=== PATIENT | male | born 1965 | race Hispanic/Latino ===

== ENCOUNTER 2018-11-30 13:55 | Inpatient (IN) | payer BC ==
[2018-11-30] MEDS ORDERED: Iohexol 240 (50 ml) PO ONE (15:05)
--- NOTE | 2018-11-30 15:24 | ED PDOC ---
HPI: Abdomen Time Seen by Provider: 11/30/18 14:48 Chief Complaint (Nursing): Abdominal Pain Chief Complaint (Provider): Abdominal Pain History Per: Patient History/Exam Limitations: no limitations Onset/Duration Of Symptoms: Persistent (x2 weeks) Current Symptoms Are (Timing): Still Present Additional Complaint(s): 53 year old male with no significant medical history, presents to the emergency department with a complaint of constant, right lower abdominal pain ongoing for 2 weeks. Patient reports associated vomiting and congestion, in which, he was seen by a doctor and prescribed Zpack and decongestants. Patient also has a pending sonogram scheduled for next week to evaluate the abdominal pain. He reports taking Advil/Aleve for pain control with minimal improvement - last dose taken at 1000 today. Otherwise, he denies fever, chills, diarrhea, cough, urinary symptoms, testicular pain, injury, trauma, new diet, or similar symptoms in the past. Patient states he "feels constipated", however, reports last BM as 1.5 days ago. Of note, he reports frequent traveling to [place] for business. PCP: none provided Past Medical History Reviewed: Historical Data, Nursing Documentation, Vital Signs Vital Signs: Last Vital Signs Temp 99.7 F H 11/30/18 14:17 Pulse 89 11/30/18 14:17 Resp 19 11/30/18 14:17 BP 143/88 11/30/18 14:17 Pulse Ox 99 11/30/18 14:17 - Medical History PMH: No Chronic Diseases - Surgical History Surgical History: No Surg Hx - Family History Family History: States: Unknown Family Hx - Living Arrangements Living Arrangements: With Family - Allergies Allergies/Adverse Reactions: Allergies Allergy/AdvReac Type Severity Reaction Status Date / Time No Known Allergies Allergy Verified 11/30/18 14:21 Review of Systems ROS Statement: Except As Marked, All Systems Reviewed And Found Negative Constitutional: Negative for: Fever, Chills ENT: Positive for: Nose Congestion Respiratory: Negative for: Cough Gastrointestinal: Positive for: Nausea, Vomiting, Abdominal Pain (right-sided), Constipation. Negative for: Diarrhea Genitourinary Male: Negative for: Dysuria, Incontinence, Hematuria, Scrotal Pain Musculoskeletal: Negative for: Back Pain Neurological: Negative for: Weakness Physical Exam - Reviewed Nursing Documentation Reviewed: Yes Vital Signs Reviewed: Yes - Physical Exam Appears: Positive for: No Acute Distress, Uncomfortable Head Exam: Positive for: ATRAUMATIC, NORMAL INSPECTION, NORMOCEPHALIC Skin: Positive for: Normal Color. Negative for: Rash Eye Exam: Positive for: Normal appearance ENT: Positive for: Normal ENT Inspection. Negative for: Pharyngeal Erythema Neck: Positive for: Normal, Supple Cardiovascular/Chest: Positive for: Regular Rate, Rhythm, Chest Non Tender Respiratory: Positive for: Normal Breath Sounds. Negative for: Respiratory Distress Pulses-Radial (L): 2+ Pulses-Radial (R): 2+ Gastrointestinal/Abdominal: Positive for: Tenderness (right, lower lateral asp ect). Negative for: Distended Back: Positive for: Normal Inspection. Negative for: L CVA Tenderness, R CVA Tenderness, Other (flank pain bilaterally) Extremity: Positive for: Normal ROM (upper/lower). Negative for: Tenderness, Pedal Edema Neurological/Psych: Positive for: Awake, Alert, Normal Tone, Symmetric/Intact Strength (5/5), Oriented. Negative for: Motor/Sensory Deficits - Laboratory Results Result Diagrams: 11/30/18 15:40 11/30/18 15:40 Interpretation Of Abn Labs: trace leuk, 1.6 cr - ECG O2 Sat by Pulse Oximetry: 99 (RA) Pulse Ox Interpretation: Normal - CT Scan/US ct Other Rad Studies (CT/US): Read By Radiologist Other Rad Interpretation: bladder distension, hydro - Progress ED Course And Treament: 1844: Spoke with Dr. Andrews. Made aware of all findings. Wants rocephine and virgen. Will consult. Will admit for further evaluation and treatment. spoke with Dr. Hickey. Will admit. AAOx3. Medical Decision Making Medical Decision Making: Time: 145 Initial Plan: * Labs including blood and urine cultures * EKG * CXR * IV fluids * Omnipaque 240 PO * Toradol IVP * Zofran IV Time: 1553 --CXR FINDINGS: LUNGS: The lungs are well inflated and clear. PLEURA: No pleural effusions or pneumothorax. CARDIOVASCULAR: The heart is normal in size. No aortic atherosclerotic calcifications present. OSSEOUS STRUCTURES: Within normal limits for the patient's age. VISUALIZED UPPER ABDOMEN: Normal. OTHER FINDINGS: None. IMPRESSION: No active pulmonary disease. Scribe Attestation: Documented by Shelbie Price, acting as a scribe for Mike Ghosh MD. Provider Scribe Attestation: All medical record entries made by the Scribe were at my direction and pers onally dictated by me. I have reviewed the chart and agree that the record accurately reflects my personal performance of the history, physical exam, medical decision making, and the department course for this patient. I have also personally directed, reviewed, and agree with the discharge instructions and disposition. Disposition - Clinical Impression Clinical Impression: Abdominal pain, Urinary retention - Patient ED Disposition Is Patient to be Admitted: Yes Counseled Patient/Family Regarding: Studies Performed, Diagnosis - Disposition Disposition Time: 18:48 Condition: FAIR - Pt Status Changed To: Hospital Disposition Of: Inpatient - Admit Certification Admit to Inpatient:: After my assessment, the patient will require hospitalization for at least two midnights. This is because of the severity of symptoms shown, intensity of services needed, and/or the medical risk in this patient being treated as an outpatient. - POA Present On Arrival: None
[2018-11-30 15:46] LABS: URINE BILIRUBIN NEGATIVE (NEGATIVE); URINE BLOOD NEGATIVE (NEGATIVE); URINE CLARITY CLEAR (Clear); URINE COLOR YELLOW (YELLOW); URINE GLUCOSE (UA) NEG (NEGATIVE); URINE LEUKOCYTE ESTERASE TRACE Leu/uL (Negative); URINE PROTEIN NEGATIVE (NEGATIVE); URINE UROBILINOGEN 0.2-1.0 mg/dL (0.2-1.0)
[2018-11-30 15:52] LABS: VENOUS BLOOD GAS BASE EXCESS 2.6 mmol/L (0.0-2.0); VENOUS BLOOD GAS PCO2 55 mmHg (40-60); VENOUS BLOOD GAS PO2 16 mm/Hg (30-55); VENOUS BLOOD PH 7.34 (7.32-7.43)
--- NOTE | 2018-11-30 15:57 | RAD ---
Date of service: 11/30/2018 HISTORY: Sepsis Patient COMPARISON: No prior. FINDINGS: LUNGS: The lungs are well inflated and clear. PLEURA: No pleural effusions or pneumothorax. CARDIOVASCULAR: The heart is normal in size. No aortic atherosclerotic calcifications present. OSSEOUS STRUCTURES: Within normal limits for the patient's age. VISUALIZED UPPER ABDOMEN: Normal. OTHER FINDINGS: None. IMPRESSION: No active pulmonary disease.
[2018-11-30 15:58] LABS: BASO % 0.4 % (0.0-2.0); EOS % 0.4 % (0.0-4.0); HEMOGLOBIN 13.8 g/dL (12.0-18.0); LYMPH # 0.6 K/uL (1.0-4.3); LYMPH % 10.6 % (20.0-40.0); MEAN CORPUSCULAR HEMOGLOBIN 28.9 pg (27.0-31.0); MONO # 0.6 K/uL (0.0-0.8); MONO % 10.5 % (0.0-10.0); NEUT # 4.7 K/uL (1.8-7.0); NEUT % 78.1 % (50.0-75.0); RBC 4.79 Mil/uL (4.40-5.90); WHITE BLOOD COUNT 6.1 K/uL (4.8-10.8)
[2018-11-30 15:59] LABS: INR 1.1; PROTHROMBIN TIME 12.5 Seconds (9.8-13.1)
[2018-11-30 16:02] LABS: PARTIAL THROMBOPLASTIN TIME 30.3 Seconds (25.6-37.1)
[2018-11-30 16:05] LABS: ALBUMIN 4.6 g/dL (3.5-5.0); BLOOD UREA NITROGEN 20 mg/dl (9-20); CALCIUM 9.4 mg/dL (8.4-10.2); GFR NON-AFRICAN AMERICAN 46
[2018-11-30 16:06] LABS: ALB/GLOB RATIO 1.4 (1.0-2.1); ALT/SGPT 34 U/L (21-72); AST/SGOT 26 U/L (17-59)
[2018-11-30] MEDS ORDERED: Iohexol 240 (50 ml) ONE (16:06)
[2018-11-30] MEDS: Sodium Chloride 0.9% 1,000 ML IV SCH ×5 (16:17→23:21)
[2018-11-30] MEDS ORDERED: Sodium Chloride 0.9% 50 ML IV ONE (17:49)
[2018-11-30] MEDS ORDERED: Iodixanol 320 MG/ML 100 ML BOTTLE IV ONE (17:49)
--- NOTE | 2018-11-30 18:35 | CT ---
Date of service: 11/30/2018 PROCEDURE: CT Abdomen and Pelvis with contrast HISTORY: Abdominal pain COMPARISON: 95 mL Visipaque 320. TECHNIQUE: CT scan of the abdomen and pelvis was performed after administration of intravenous contrast. Oral contrast was administered. Coronal and sagittal reformatted images were obtained. Contrast dose: 95 mL Visipaque 320 Radiation dose: Total exam DLP = 658.45 mGy-cm. This CT exam was performed using one or more of the following dose reduction techniques: Automated exposure control, adjustment of the mA and/or kV according to patient size, and/or use of iterative reconstruction technique. FINDINGS: LOWER THORAX: There is subsegmental atelectasis in the lung bases. LIVER: Normal in size with homogeneous enhancement. No gross lesion or ductal dilatation. GALLBLADDER AND BILE DUCTS: Well distended. No calcified gallstones, wall thickening or pericholecystic fluid. PANCREAS: Normal in size with homogeneous enhancement. No gross lesion or ductal dilatation. SPLEEN: Normal in size and appearance. ADRENALS: No discrete nodule. KIDNEYS AND URETERS: There is severe bilateral hydronephrosis, severe distension of bilateral renal pelvis and moderate diffuse dilatation of both ureters without evidence for distal obstruction. No solid mass. VASCULATURE: No aortic aneurysm. There are no aortic atherosclerotic calcifications or mural plaque present. BOWEL: Evaluation of the bowel is limited in the absence of oral contrast. The small bowel loops are normal in caliber. The colon is grossly normal in appearance. No bowel wall thickening or obstruction. APPENDIX: Normal appendix. PERITONEUM: No free fluid. No free air. LYMPH NODES: No enlarged lymph nodes. BLADDER: The urinary bladder is markedly over distended and into the abdomen above the umbilicus. The urinary bladder is otherwise grossly normal in appearance without mural thickening or intraluminal mass. REPRODUCTIVE: Prostate gland is normal in size. BONES: No acute fracture. Multilevel Schmorl's nodes. OTHER FINDINGS: None. IMPRESSION: 1. Markedly over distended urinary bladder extending into the abdominal cavity above the umbilicus with resultant moderate diffuse dilatation of the ureters, severe hydronephrosis and distention of renal pelves bilaterally. No evidence for bladder outlet obstruction. 2. No acute abdominal or pelvic abnormality. Important findings were discussed with Dr. Mike Ghosh in the ER on 11/30/2018 at 6:30 p.m.
[2018-11-30] MEDS ORDERED: cefTRIAXone (Rocephin) 1 gm Inj IV ONE (18:40)
[2018-11-30] MEDS ORDERED: Povidone Iodine Oint 10% Foilpak UD ONE (18:57)
[2018-11-30] MEDS ORDERED: cefTRIAXone (Rocephin) 1 gm Inj ONE (19:25)
--- NOTE | 2018-12-01 09:28 | CARD ---
APPROVED REPORT Date of service: 11/30/2018 EKG Measurement Heart [id number] <Conclusion> Normal sinus rhythm Normal ECG
[2018-12-01] MEDS: Enoxaparin 40 mg Syringe SC SCH (10:37)
[2018-12-01] MEDS ORDERED: Chlorhexidine Gluconate 1 APPL/PKT TP ONE (14:30)
[2018-12-01] MEDS: Sodium Chloride 0.9% 1,000 ML IV SCH (17:29)
--- NOTE | 2018-12-01 19:39 | HP ---
CHIEF COMPLAINT: Abdominal pain. HISTORY OF PRESENT ILLNESS: This is a 53-year-old male without significant past medical history, who was having abdominal pain on and off for about 2 weeks. The patient was brought to the emergency room and was admitted for further management. Previously, the patient was treated for similar complaint with Z-Rm and decongestant as an outpatient. REVIEW OF SYSTEMS: Positive for abdominal pain. Review of systems otherwise is negative for headache, dizziness, syncope, loss of consciousness, chest pain, shortness of breath, nausea, vomiting, diarrhea, constipation, and any new joint or extremity pain. Review of system of all other organ system is unremarkable. PAST MEDICAL HISTORY: Unremarkable. PAST SURGICAL HISTORY: Unremarkable. PERSONAL HISTORY: The patient is currently nonsmoker, nondrinker. No substance abuse. MEDICATIONS: The patient is not on any chronic medication. ALLERGIES: THE PATIENT IS NOT ALLERGIC TO ANY MEDICATIONS. FAMILY HISTORY: Noncontributory. PHYSICAL EXAMINATION: GENERAL: Well-built, well-nourished 53-year-old male, in no acute distress. VITAL SIGNS: Temperature as above, pulse 83, respirations 20, blood pressure 118/77. HEENT: Pupils reacting to light. No JVD. No thyromegaly. No lymphadenopathy. No nystagmus. Normocephalic, atraumatic skull. HEART: S1 and S2, normal and regular. No significant murmur, gallop, or rub is heard. LUNGS: Good bilateral air exchange. No rales or rhonchi. ABDOMEN: Soft, nontender. No organomegaly. No fluid. Bowel sounds are present and normal. The patient has Lundberg catheter containing clear urine without any blood. EXTREMITIES: No edema. No calf swelling. No tenderness. No acute ischemia. CENTRAL NERVOUS SYSTEM: Essentially unchanged and there is no sign of any acute gross focal motor or sensory neurological deficits. DIAGNOSTIC DATA: Available diagnostic data reviewed. EKG showed normal sinus rhythm without any acute ST-T changes. WBC 6.1, hemoglobin 13.8, hematocrit 40.7, and platelets 180,000. PT and INR is unremarkable. Sodium 140, potassium 3.9, chloride 101, bicarbonate 23, BUN 20, creatinine 1.6. Glucose is 123. SMA-12 otherwise is unremarkable. Urinalysis was negative. Abdomen CAT showed distended bladder, hydronephrosis, and hydroureter. Chest x-ray is clear. ADMITTING IMPRESSION: Urinary retention. PLAN: As ordered. Case and plan discussed with the patient. Phu Hickey MD
--- NOTE | 2018-12-02 00:14 | CON ---
DATE: 12/01/2018 TIME OF CONSULTATION: Roughly 2:40 p.m. BRIEF HISTORY: The patient is a 53-year-old white male, previously healthy with no medical history, presented to [facility] ER with history of a few-day onset of right lower abdominal pain. An abdominopelvic CT done on 11/30/2018, the date of his admission, showed a markedly distended urinary bladder above the umbilicus associated with severe bilateral hydronephrosis and severe distention of the bilateral renal pelvis and moderate diffuse dilatation of both ureters without evidence of distal obstruction. No solid mass. No acute abdominal or pelvic abnormality. The prostate was not defined by the radiologist on this CT report. The patient gives also a history of some very slight change in his urinary symptoms over the last six months. Previously, he had no urinary frequency and did not wake up at night to void urine. He had no dysuria, gross hematuria, or renal colic. He did have right lower quadrant pain. The patient's only positive family history is his father had of metastatic prostate cancer at age 85. He has no prior history of any sexually transmitted diseases. No ED. No history of kidney disease or kidney stones. SOCIAL HISTORY: He is a nonsmoker and very rare social drinker. ALLERGIES: NO KNOWN ALLERGIES TO ANY MEDICATIONS. PHYSICAL EXAMINATION: GENERAL: He is a well-developed, well-nourished white male, alert, oriented. VITAL SIGNS: Today show a temperature of 98, pulse rate 83, blood pressure 118/77, respiratory rate 20 and O2 saturation on room air was 98%. HEENT: Grossly within normal limits. NECK: Supple. Thyroid not palpable. ABDOMEN: Soft. Currently not distended. Not tender. No CVA tenderness. No suprapubic tenderness with an indwelling Lundberg catheter draining slightly blood-tinged urine well. GENITOURINARY: His testicles are down bilaterally and nontender without any masses. RECTAL: Normal rectal tone without fluctuance or masses. Prostate was wide, flat, smooth, symmetrical, enlarged and nontender without nodules or indurations with a palpable median sulcus. LABORATORY DATA: His laboratory evaluation on 11/30/2018 showed a CBC with a WBC count of 6.1, hemoglobin of 13.8, hematocrit 40.7, and a platelet count of 180,000. His coag profile showed a PT of 12.5, INR 1.1, and a PTT of 30.3. His chem profile shows a sodium of 140, potassium 3.9, chloride 101, CO2 of 26, BUN and creatinine 20 and 1.6 with a GFR of 46 indicating chronic kidney disease stage III. His random glucose was 123. Calcium 9.4. Phosphorus 3.7. Magnesium 1.7. Total bilirubin 0.6. AST 26, ALT 34. Alkaline phosphatase is 55. His urinalysis showed the color was yellow, clarity was clear, pH 6, specific gravity 1.014. Protein negative. Glucose negative. Ketones, blood, nitrites, bilirubin all negative. Urobilinogen is 0.2 to 1. Leukocyte esterase is trace. Less than 1 rbc, 3 wbc per high-power field. Urine culture on 11/30/2018 showed no growth. DIAGNOSTIC IMPRESSION: To this patient is, 1. Acute urinary retention. 2. Benign prostatic hypertrophy. 3. Chronic kidney disease stage III. 4. Most likely bladder outlet obstruction with severe bilateral hydronephrosis. PLAN: 1. Obtain a total and free PSA. 2. Start the patient on Flomax 0.8 mg daily and also start the patient on finasteride 5 mg daily in the morning after the PSA has been drawn. The patient can be eventually discharged home with the Lundberg catheter to leg bag drainage and follow up in my office in one week for removal of the Lundberg catheter, on double-dose Flomax. The patient also gives an additional history of taking Aleve and Advil for pain and also some antihistamines possibly with the D formulation which includes Sudafed for treatment of sinus problem. We will also have the radiologist re-read the abdominopelvic CT and mention the prostate volume. Papa Andrews MD MTDD
[2018-12-02] MEDS ORDERED: Oxymetazoline 0.05% SPRAY NAS PRN (00:47)
[2018-12-02 07:43] LABS: HEMOGLOBIN 13.5 g/dL (12.0-18.0); MEAN CELL VOLUME 84.2 fl (80.0-94.0); MEAN CORPUSCULAR HEMOGLOBIN 29.3 pg (27.0-31.0); MEAN CORPUSCULAR HGB CONC 34.8 g/dL (33.0-37.0); RBC 4.6 Mil/uL (4.40-5.90); RED CELL DISTRIBUTION WIDTH 12.8 % (11.5-14.5); WHITE BLOOD COUNT 4.6 K/uL (4.8-10.8)
[2018-12-02 08:04] LABS: ALB/GLOB RATIO 1.4 (1.0-2.1); ALBUMIN 3.9 g/dL (3.5-5.0); ALT/SGPT 38 U/L (21-72); AST/SGOT 27 U/L (17-59); BLOOD UREA NITROGEN 18 mg/dl (9-20); GFR NON-AFRICAN AMERICAN 53
[2018-12-02] MEDS: Enoxaparin 40 mg Syringe SC SCH (09:00)
--- NOTE | 2018-12-02 11:37 | PN ---
DATE: 12/02/2018 SUBJECTIVE: The patient is seen and examined. Interim events noted. Consults noted and appreciated. Urology intervention noted and appreciated. The patient remains in regular medical floor. The patient is awake and responsive. Feels okay. Denies any chest pain or shortness of breath. The patient has Lundberg catheter draining clear urine. PHYSICAL EXAMINATION: GENERAL: The patient is in no acute distress. VITAL SIGNS: Stable. HEART: S1 and S2. Normal and regular. LUNGS: Good bilateral air exchange. ABDOMEN: Soft and nontender. EXTREMITIES: No edema. No swelling. No tenderness. No acute ischemia. CENTRAL NERVOUS SYSTEM: Essentially unchanged. DIAGNOSTIC DATA: Available diagnostic data reviewed. Urology consult and intervention noted and appreciated. The patient is sonogram tomorrow. PLAN: As ordered. Case and plan discussed with the patient. Phu Hickey MD
[2018-12-02 23:41] VITALS: RESP 20
[2018-12-03 08:54] VITALS: BP 113/73; PULSE 88; TEMP 98.1; O2SAT 98
--- NOTE | 2018-12-03 15:02 | US ---
Date of service: 12/03/2018 PROCEDURE: Transrectal prostate ultrasound. HISTORY: measure size of prostate COMPARISON: 11/30/2018. CT abdomen and pelvis. TECHNIQUE: Standard protocol for this study/examination. FINDINGS: Calculated prostate volume: 4.9 x 2.5 x 4.9 cm. This corresponds to a prostate volume 31.63 ml. Corresponding PPSA 3.80 Unremarkable seminal vesicles as visualized. No pelvic masses or lymphadenopathy identified. IMPRESSION: Normal sized prostate gland. Neither focal nor diffuse abnormalities detected.
--- NOTE | 2018-12-04 02:32 | PN ---
DATE: 12/03/2018 SUBJECTIVE: The patient seen and examined. Interim events noted. Consults noted and appreciated. The patient remains in regular medical floor. Denies any specific complaint. No chest pain. No shortness of breath. The patient has Lundberg catheter. PHYSICAL EXAMINATION: GENERAL: The patient is in no acute distress. VITAL SIGNS: Stable. Physical exam is essentially unchanged. DIAGNOSTIC DATA: Available diagnostic data reviewed. Prostate ultrasound is pending. Total PSA is 3. Free PSA is 0.5. ASSESSMENT: Overall, the patient is medically stable. PLAN: As ordered. Phu Hickey MD
== END 2018-12-03 15:50 | disposition home or self-care (01) | DRG 699 ==
LOC: H.ER 13:55 → H.ERHOLD 18:45 → H.MEDSURG1 21:05
PROVIDERS: ADMIT Internal Medicine; ATTEND Internal Medicine
DX: N32.0 Bladder-neck obstruction (principal); N13.30 Unspecified hydronephrosis; N40.1 Benign prostatic hyperplasia with lower urinary tract symptoms; R33.8 Other retention of urine; N18.3 Chronic kidney disease, stage 3 (moderate); Z80.42 Family history of malignant neoplasm of prostate

== ENCOUNTER 2018-12-14 14:41 | Emergency (ER) | payer BC ==
[2018-12-14 14:53] VITALS: BP 130/79; PULSE 91; RESP 16; TEMP 98.9; O2SAT 97; BMI 26.6
--- NOTE | 2018-12-14 15:17 | ED PDOC ---
HPI: Male Pain Time Seen by Provider: 12/14/18 15:01 Chief Complaint (Nursing): Male Genitourinary Chief Complaint (Provider): virgen needs to be removed History Per: Patient Associated Symptoms: denies: Fever, Chills, Nausea, Vomiting, Diarrhea, Loss Of Appetite, Back Pain, Constipation Additional Complaint(s): reports that he was supposed to have virgen removed a week ago but his appointment got cancelled by Dr Whitney's office and he isn't schedule until december 26 and is concerned about the length of time virgen has been in place. denies hematuria, back or abd pain, fever/chills, or constipation. compliant wit h all meds given for bph only reports difficulty with sleeping due to severe congestion in his nose. he had been taken meds for sinus infection but stopped then when urinary retention occurred. pmd none Past Medical History Reviewed: Historical Data, Nursing Documentation, Vital Signs Vital Signs: Last Vital Signs Temp 98.9 F 12/14/18 14:52 Pulse 91 H 12/14/18 14:52 Resp 16 12/14/18 14:52 BP 130/79 12/14/18 14:52 Pulse Ox 97 12/14/18 14:52 Primary Care Provider: FAMILY PROVIDER,NO - Medical History PMH: Benign Prostatic Hyperplasia Denies: HIV, Chronic Kidney Disease - Surgical History Surgical History: Tonsillectomy - Family History Family History: States: Unknown Family Hx - Social History Current smoker - smoking cessation education provided: No - Home Medications Home Medications: Ambulatory Orders Medication Instructions Recorded Tamsulosin [Flomax] 0.8 mg PO DAILY #30 cap 12/03/18 - Allergies Allergies/Adverse Reactions: Allergies Allergy/AdvReac Type Severity Reaction Status Date / Time No Known Allergies Allergy Verified 11/30/18 14:21 Review of Systems ROS Statement: Except As Marked, All Systems Reviewed And Found Negative (and as per hpi) ENT: Positive for: Nose Congestion Gastrointestinal: Negative for: Abdominal Pain Musculoskeletal: Negative for: Back Pain Skin: Negative for: Rash, Lesions Physical Exam - Reviewed Nursing Documentation Reviewed: Yes Vital Signs Reviewed: Yes - Physical Exam Appears: Positive for: Non-toxic, No Acute Distress Head Exam: Positive for: ATRAUMATIC, NORMOCEPHALIC Skin: Positive for: Warm, Dry Gastrointestinal/Abdominal: Positive for: Soft. Negative for: Tenderness Neurological/Psych: Positive for: Awake, Alert - ECG O2 Sat by Pulse Oximetry: 97 - Physician Consult Information Time Consulting Physican Contacted: 15:15 Physician Contacted: Papa Whitney Outcome Of Conversation: virgen can be removed. advised to followup with him in office. cautioned if has no/poor urine output after 10 hours, needs to return for replacement of virgen. Disposition - Clinical Impression Clinical Impression: BPH (benign prostatic hyperplasia) - Disposition Referrals: Papa Whitney MD [Staff Provider] - (PLEASE FOLLOW UP WITH DR WHITNEY SCHEDULED FOR FURTHER EVALUATION) Disposition: Routine/Home Disposition Time: 15:22 Condition: STABLE Additional Instructions: CONTINUE FLOMAX PRESCRIBED TAKE YOUR SINUS MEDICATIONS NEEDED BUT DO NOT USE PSEUDOEPHEDRINE OR PHENYLEPHRINE PRODUCTS. Instructions: Benign Prostatic Hyperplasia (Enlarged Prostate) (DC)
== END 2018-12-14 16:17 | disposition home or self-care (01) ==
LOC: SUPCPDRO 14:41 → H.ER 14:41
DX: N40.0 Benign prostatic hyperplasia without lower urinary tract symptoms (principal); Z45.89 Encounter for adjustment and management of other implanted devices